=== PATIENT | male | born 1980 | race Caucasian/White ===

== ENCOUNTER 2017-07-12 22:04 | Emergency (ER) | payer OTHER ==
--- NOTE | ~2017-07-12 | ER ---
PATIENT'S NAME: KRUNAL ALMANZAR [facility] AGE: 37 Y [address] ROOM: [place] [address] LOCATION: ED ADMIT DATE: 07/12/2017 ER/Outpatient Report DISCHARGE DATE: 07/12/2017 FAMILY PHYSICIAN: PHYSICIAN, BABITA ATTENDING PHYSICIAN: Georgette Mike Time of evaluation: 2215 hours. HISTORY OF PRESENT ILLNESS: The patient is a 37-year-old male presents with an area of redness and swelling in his posterior left calf. The patient has a previous history of a superficial varicosities and denies any chest pain or shortness of breath. Denies any trauma to the area. ALLERGIES: NONE. HOME MEDICATIONS: None. PAST MEDICAL HISTORY: No chronic diseases other than excessive weight. PAST SURGICAL HISTORY: None. Again, he has had a previous superficial varicosity. SOCIAL HISTORY: Smoker pack a day. Alcohol socially. His job involves a lot of standing. REVIEW OF SYSTEMS: GENERAL: No recent infections. HEENT: Negative. RESPIRATORY: No cough or shortness of breath. CARDIOVASCULAR: No recent chest pain. Has noticed some tenderness and swelling of the vein in his back of his left leg. PHYSICAL EXAMINATION: VITAL SIGNS: His blood pressure 158/68, temperature is 99.3, pulse 90, respiratory rate, and his O2 saturations 98%. GENERAL APPEARANCE: Overweight. He weighs 167 kg. LUNGS: Clear. HEART: Regular rhythm. EXTREMITIES: Exam of his left calf showed a somewhat indurated vein in the posterior mid calf, tender. No pitting edema. Had a palpable pedal pulse. Doppler study of his left leg showed two areas of superficial phlebitis. No PATIENT'S NAME: KRUNAL ALMANZAR [facility] AGE: 37 Y [address] ROOM: [place] [address] LOCATION: [facility] ADMIT DATE: 07/12/2017 ER/Outpatient Report DISCHARGE DATE: 07/12/2017 FAMILY PHYSICIAN: PHYSICIAN, NO ATTENDING PHYSICIAN: Georgette Mike deep veins involved. ASSESSMENT: 1. Superficial phlebitis of the left posterior calf. 2. Excessive weight. PLAN: Recommended moist heat 20 minutes four times a day and ibuprofen 600 to 800 three times a day for the next 5 to 7 days. Follow up if it does not improve or if he develops any shortness of breath or chest pain. JAHAIRA UPTON FOR MD JEANNETTE WALTER/modl /[id number] d: 07/12/17 2346 t: 07/20/17 1221, OUTPATIENT REPORT
--- NOTE | ~2017-07-12 | ENPV ---
Vascular Lower Extremities DVT Study Procedure Demographics Patient Name KRUNAL ALMANZAR Date of Study 07/12/2017 Patient Number [id number] Gender Male Date of 1980 Age 37 Visit Number [id number] Height Weight Number Room Number BSA BMI Referring Andreina Montes PA-C Interpreting Kalin Diaz MD Physician Physician Physician Ordering Andreina Montes Quarrying Manager Physician JOSÉ ANTONIO Guest Relations Receptionist Nicole [facility], [facility] Conclusions Summary No evidence of deep vein thrombosis in the left lower extremity , but there is superficial thrombophlebitis in a short segment of the great saphenous vein below the knee. Evidence of thrombus in a cluster of varicosities in the calf. Procedure Type of Study: Veins:Lower Extremities DVT Study, Lower Extremity Left. Indications for Study:Pain in Limb. Appropriate Use Criteria:9 Patient Status:STAT. Study Location:ER. Technical Quality:Adequate visualization. Velocities are measured in cm/s ; Diameters are measured in cm Left Lower Extremities DVT Study Measurements Left 2D and Doppler Measurements + + + + +------+------+ + !Location !Visualized!Compressibility!Thrombosis!Signal!Reflux!Reflux ! ! ! ! ! ! ! !(sec) ! + + + + +------+------+ + !GSV Thigh !Yes !No !None !Phasic! ! ! + + + + +------+------+ + !Common !Yes !Yes !None !Phasic! ! ! !Femoral ! ! ! ! ! ! ! + + + + +------+------+ + !Prox !Yes !Yes !None !Phasic! ! ! !Femoral ! ! ! ! ! ! ! + + + + +------+------+ + !Mid Femoral!Yes !Yes !None ! ! ! ! + + + + +------+------+ + !Dist !Yes !Yes !None !Phasic! ! ! !Femoral ! ! ! ! ! ! ! + + + + +------+------+ + !Popliteal !Yes !Yes !None !Phasic! ! ! + + + + +------+------+ + !Gastroc !Yes !Yes !None !Phasic! ! ! + + + + +------+------+ + !PTV !Yes !Yes !None !Phasic! ! ! + + + + +------+------+ + !Peroneal !Yes !Yes !None !Phasic! ! ! + + + + +------+------+ + Signature dtt: LORI SCHRADER dtd: 07/12/17 2241 Physician Self Edsally
== END 2017-07-12 23:20 | disposition disaster alternative care site (69) ==
LOC: GMED 22:04
DX: I80.02 Phlebitis and thrombophlebitis of superficial vessels of left lower extremity (principal); R63.5 Abnormal weight gain; F17.210 Nicotine dependence, cigarettes, uncomplicated